=== PATIENT | female | born 1965 | race Caucasian/White ===

== ENCOUNTER 2016-08-03 08:05 | Emergency (ER) | payer MEDICAID ==
[2016-08-03] MEDS ORDERED: KETOROLAC 60 MG/2 ML VIAL IM ONE (09:07)
== END 2016-08-03 09:41 | disposition home or self-care (01) ==
LOC: ER 08:37
DX: S83.91XA Sprain of unspecified site of right knee, initial encounter (principal)
CPT/HCPCS: 96372